=== PATIENT | male | born 1970 | race Caucasian/White ===

== ENCOUNTER → 2018-09-27 12:27 | Outpatient (CLI) | payer BC | END | disposition home or self-care (01) | LOC: D.RAD 12:27 | PROVIDERS: ATTEND Orthopaedic Surgery | DX: M25.511 Pain in right shoulder (principal) ==

== ENCOUNTER 2019-01-03 08:00 | Outpatient (CLI) | payer BC ==
[~2019-01-03] VITALS: Ht 177.8 cm; Wt 90.7 kg
[2019-01-03 11:07] LABS: HEMATOCRIT 50.8 % (42.0-54.0); HEMOGLOBIN 18.1 g/dL (13.5-17.5); LYMPHOCYTES 20.8 % (15-50); MCH 30.3 pg (26.0-34.0); MCHC 35.6 g/dL (31.0-37.0); MCV 84.9 fL (80.0-100.0); MEAN PLATELET VOLUME 9.7 fL (7.4-10.4); NEUTROPHILS 67.9 % (40-80); PLATELET COUNT 169 10x3/uL (130-400); RBC 5.98 10x6/uL (4.20-6.10); WBC 6.9 10x3/uL (4.8-10.8)
[2019-01-03 11:11] LABS: CALC OSMOLALITY 274 mosm/kg (275-300); CALCIUM 8.8 mg/dL (8.5-10.1); CARBON DIOXIDE 29.2 mmol/L (21.0-32.0); CHLORIDE - SERUM 103 mmol/L (98-107); CREATININE - SERUM 1.1 mg/dL (0.6-1.3); GLUCOSE 126 mg/dL (74-106); POTASSIUM - SERUM 4.5 mmol/L (3.5-5.1); SODIUM 136 mmol/L (136-145); UREA NITROGEN 15 mg/dL (7-18); eGFR NON AFRICAN AMERICAN 76 mL/min (90-120)
== END 2019-01-03 08:01 | disposition home or self-care (01) ==
LOC: D.OPS 08:00 → D.PAN 01-08 07:30 → D.OPS 01-08 07:30 → EDSTATUS 01-16 07:30 → D.OPS 01-16 07:30
PROVIDERS: ATTEND Orthopaedic Surgery
DX: M75.101 Unspecified rotator cuff tear or rupture of right shoulder, not specified as traumatic (principal); T14.8XXA Other injury of unspecified body region, initial encounter; S46.211A Strain of muscle, fascia and tendon of other parts of biceps, right arm, initial encounter; X58.XXXA Exposure to other specified factors, initial encounter